=== PATIENT | female | born 1990 | race Caucasian/White ===

== ENCOUNTER 2021-10-18 12:44 | Outpatient (CLI) | payer OTHER, SELFPAY ==
--- NOTE | ~2021-10-18 | MR_ITS ---
EXAMINATION: MR knee RT wo con DATE: 10/18/2021 13:27 INDICATION: Right knee pain post twisting injury TECHNIQUE: Magnetic resonance imaging (MRI) of the right knee was performed without intravenous contr ast. Sequences included coronal PD-weighted FSE, coronal PD-weighted FS FSE, sagittal T2-weighted FS E, sagittal PD-weighted FS FSE and axial PD weighted fat saturated FSE. COMPARISON: None. FINDINGS: Medial compartment: Medial meniscus is normal. Articular cartilage is normal. Lateral compartment: Lateral meniscus is normal. Articular cartilage is normal. Patellofemoral compartment: Articular cartilage is normal. Ligaments and tendons: Anterior and posterior cruciate ligaments are normal. Fibular collateral ligament complex is normal. Mild thickening and increased signal of the proximal medial collateral ligament surrounding edema con sistent with moderate grade sprain/partial tear. This includes a linear longitudinal split tear. Mild tendinopathy and small enthesopathic ossicles at the distal patellar tendon. Quadriceps tendon is no rmal. The visualized medial and lateral hamstring tendons as well as the iliotibial band are normal. Fluid: Physiologic amount of fluid in the joint space. No loose osteochondral bodies identified. Osseous/other: Small focus of marrow edema along the lateral rim of the posterior weightbearing lateral femoral cond yle consistent with bone contusion without discrete fracture line. No fracture or pathologic marrow r eplacing process. There is additional focal edema at the lateral aspect of the deep suprapatellar fat pad which can be seen with fat pad impingement syndrome but could also be due to a direct contusion injury. IMPRESSION: 1. Moderate grade sprain/partial tear of the proximal medial collateral ligament. 2. Bone contusion along the lateral rim of the posterior weightbearing lateral femoral condyle. 3. Edema at the lateral aspect of the deep suprapatellar fat pad which can be seen with fat pad impin gement syndrome or more likely sequela of direct contusion. Reviewed, dictated and finalized at location [facility] IMPRESSION: 1. Moderate grade sprain/partial tear of the proximal medial collateral ligamen t. 2. Bone contusion along the lateral rim of the posterior weightbearing lateral femoral condyle. 3. Edema at the lateral aspect of the deep suprapatellar fat pad which can be s een with fat pad impingement syndrome or more likely sequela of direct contusio n.
== END 2021-10-18 12:45 | disposition home or self-care (01) ==
PROVIDERS: Visit Provider Orthopaedic Surgery
DX: S83.401A Sprain of unspecified collateral ligament of right knee, initial encounter (principal)
CPT/HCPCS: 73721